=== PATIENT | male | born 1950 | race Caucasian/White ===

== ENCOUNTER 2017-01-22 11:09 | Day surgery (SDC) | payer MEDICARE, OTHER ==
--- NOTE | ~2017-01-22 | EGD ---
EGD REPORT [facility] [address] [id number] NAME: DARNELL MOORE : [birth year] STATUS : [facility]#: [id number] AGE: 66 ADM/REG DATE : 01/22/17 MR#: [id number] REPORT SERV DATE: 01/30/17 DICTATED BY: GEROGES AYALA DATE: 01/30/17 REPORT STATUS : Draft TRANSCRIBED BY: [facility] DATE: 01/30/17 Pulmonology Patient Name: Darnell Moore Procedure Date: 01/22/2017 1:13 PM Date of : 1950 Attending MD: GRISELDA AYALA MD Procedure Date No Time: 01/22/2017 Procedure: EBUS Indications: Mediastinal adenopathy Providers: GRISELDA AYALA MD Referring MD: CHRIS GASTELUM Medicines: Lidocaine 2% 20 mL Complications: No immediate complications Procedure: Pre-Anesthesia Assessment: - ASA Grade Assessment: IV - A patient with severe systemic disease that is a constant threat to life. - A History and Physical has been performed. Patient meds and allergies have been reviewed. The risks and benefits of the procedure and the sedation options and risks were discussed with the patient. All questions were answered and informed consent was obtained. Patient identification and proposed procedure were verified prior to the procedure by the physician and the nurse in the procedure room. Mental Status Examination: alert and oriented. Respiratory Examination: clear to auscultation. CV Examination: normal and RRR, no murmurs, no S3 or S4. ASA Grade Assessment: IV - A patient with severe systemic disease that is a constant threat to life. After reviewing the risks and benefits, the patient was deemed in satisfactory condition to undergo the procedure. The anesthesia plan was to use general anesthesia. Immediately prior to administration of medications, the patient was re-assessed for adequacy to receive sedatives. The heart rate, respiratory rate, oxygen saturations, blood pressure, adequacy of pulmonary ventilation, and response to care were monitored throughout the procedure. The physical status of the patient was re-assessed after the procedure. After obtaining informed consent, the Bronchoscope was introduced through the mouth, via the endotracheal tube (the patient was intubated for the procedure) and advanced to the tracheobronchial tree. the BF [id number] was introduced through the mouth, via the endotracheal tube (the patient was intubated for the procedure) and advanced to the tracheobronchial tree. EGD REPORT [address] [address] NAME: DARNELL MOORE : [birth year] STATUS : [facility]#: [id number] AGE: 66 ADM/REG DATE : 01/22/17 MR#: [id number] REPORT SERV DATE: 01/30/17 DICTATED BY: GEORGES AYALA DATE: 01/30/17 REPORT STATUS : Draft TRANSCRIBED BY: [employer] DATE: 01/30/17 The procedure was accomplished without difficulty. The patient tolerated the procedure well. Findings: The endotracheal tube is in good position. The visualized portion of the trachea is of normal caliber. The opal is sharp. The tracheobronchial tree was examined to at least the first subsegmental level. Bronchial mucosa and anatomy are normal; there are no endobronchial lesions, and no secretions. EBUS TBNA of lymph node level 7 x 4 passes for cytology EBUS TBNA of lymph node level 4R x 6 passes for cytology EBUS TBNA of lymph node level 11R x 11 passes for cytology Bronchoalveolar lavage was performed in the right upper lobe of the lung and sent for routine cytology. 60 mL of fluid were instilled. 20 mL were returned. The return was blood-tinged and cellular. Impression: Rapid On-Site Evaluation (NICOLAS): Preliminary cytology is POSITIVE for malignancy (final results are pending). Recommendation: - Await test results. - Chest X-ray post-procedure. - Follow up with referring physician, Dr. Sinclair Attending Participation: I personally performed the entire procedure. GRISELDA AYALA MD 01/22/2017 2:29 PM This report has been signed electronically. Number of Addenda: 0 Note Initiated On: 01/22/2017 1:13 PM [address] [id number]
--- NOTE | ~2017-01-22 | CN ---
Consultation Report [place] [address] [facility] [place] [address] NAME: DARNELL MOORE : [birth year] STATUS : [facility] PAT#: [id number] AGE: 66 ADM/REG DATE : 01/22/17 MR#: [id number] REPORT SERV DATE: 01/22/17 DICTATED BY: JOSE AYALA DATE: 01/22/17 REPORT STATUS : Draft TRANSCRIBED BY: [employer] DATE: 01/22/17 CONSULTATION DATE OF CONSULTATION: Dear Dr. Milligan: Thank you for requesting my opinion regarding evaluation and management of Mr. Darnell Moore's mediastinal lymphadenopathy. Mr. Moore is an extremely pleasant gentleman who is 66 years old with a significant past medical history of stage IV adenocarcinoma, status post whole brain radiation, who has developed increasing primary lung mass and mediastinal lymphadenopathy, which prompted radiation therapy to the current site and primary site. He underwent a second round of radiation therapy on 12/09/2016. The patient underwent repeat surveillance imaging, which then demonstrated a progressive pretracheal, right upper paratracheal and anterior mediastinal lymphadenopathy since October concerning for metastatic disease. Progressive metastatic disease. The patient has been set up for a study which requires repeat biopsy. The patient states that he has chronic shortness of breath well localized to the chest, nonradiating, with no significant alleviating or exacerbating factors. He firmly denies any hemoptysis, new weight gain, weight loss, or recent aspiration event. REVIEW OF SYSTEMS: A detailed 14-point review of systems was completed. Pertinent positives and negatives are listed above. PAST MEDICAL HISTORY: 1. Stage IV lung cancer. 2. Arthritis. 3. Tobacco abuse. 4. Hypothyroidism. 5. Brain metastases. ALLERGIES: PENICILLIN. SOCIAL HISTORY: The patient is . He smoked from age 15 to 60 for two packs per day. FAMILY HISTORY: Noncontributory. PHYSICAL EXAMINATION: VITAL SIGNS: Reviewed and located in the paper chart. GENERAL: No acute distress. Able to communicate in full paragraphs at a time. Consultation Report [place] [address] [facility] [place]. [address] NAME: DARNELL MOORE : [birth year] STATUS : [facility] PAT#: [id number] AGE: 66 ADM/REG DATE : 01/22/17 MR#: [id number] REPORT SERV DATE: 01/22/17 DICTATED BY: JOSE AYALA DATE: 01/22/17 REPORT STATUS : Draft TRANSCRIBED BY: [employer] DATE: 01/22/17 HEENT: Normocephalic, atraumatic. Pupils are equal, round, and reactive to light and accommodation. Posterior oropharynx is clear. NECK: No JVD. No LAD. Trachea midline. CARDIOVASCULAR: Regular rate and rhythm. S1 and S2 present. LUNGS: Scattered wheezes, but overall clear. ABDOMEN: Nontender, nondistended, soft. Positive bowel sounds. EXTREMITIES: No clubbing, cyanosis, or edema. SKIN: Radiation port noted with minimal hyperpigmentation posteriorly. NEUROLOGIC: 5/5 strength in upper and lower extremities. Cranial nerves 2 through 12 intact. Gait not tested. DTRs not performed. IMAGING: CT scan of the chest on 01/06/2017 was personally reviewed by me. Positive response and therapy in the right upper lobe lung mass since October, now measuring 5.8 x 4.3 cm. Progressive pretracheal, right upper paratracheal, and anterior mediastinal lymphadenopathy since October. This CT scan was personally reviewed by me and I agree with the above interpretation. ASSESSMENT AND PLAN: Mr. Darnell Moore is an extremely pleasant, 66-year-old, gentleman with a significant past medical history of adenocarcinoma, status post radiation therapy, who presents with suspicion for progressive disease with increasing mediastinal lymphadenopathy. At this point, Mr. Moore requires repeat biopsy to qualify for study drug, and Dr. Sinclair is requesting more tissue. We discussed in detail potential options including thoracoscopic approach, CT-guided needle biopsy, and EBUS bronchoscopy. After carefully discussing the risks, benefits, and alternatives to each of these procedures, we agreed to proceed forward with EBUS bronchoscopy. RECOMMENDATIONS: A summary of my recommendations is as follows: 1. Proceed with EBUS bronchoscopy. 2. Follow up with Dr. Sinclair. Thank you for allowing me to participate in Mr. Moore's care. MACIEL/SUZY Jose Ayala M.D. / [id number] CC: Mary Valerio DO
--- NOTE | ~2017-01-22 | EGD ---
EGD REPORT [facility] [address] [id number] NAME: DARNELL MOORE : [birth year] STATUS : [facility]#: [id number] AGE: 66 ADM/REG DATE : 01/22/17 MR#: [id number] REPORT SERV DATE: 01/30/17 DICTATED BY: GEORGES AYALA DATE: 01/30/17 REPORT STATUS : Draft [facility]ANSCRIBED BY: [facility] DATE: 01/30/17 Pulmonology Patient Name: Darnell Moore Procedure Date: 01/22/2017 1:13 PM Date of : 1950 Attending MD: GRISELDA AYALA MD Procedure Date No Time: 01/22/2017 Procedure: EBUS Indications: Mediastinal adenopathy Providers: GRISELDA AYALA MD Referring MD: CHRIS GASTELUM Medicines: Lidocaine 2% 20 mL Complications: No immediate complications Procedure: Pre-Anesthesia Assessment: - ASA Grade Assessment: IV - A patient with severe systemic disease that is a constant threat to life. - A History and Physical has been performed. Patient meds and allergies have been reviewed. The risks and benefits of the procedure and the sedation options and risks were discussed with the patient. All questions were answered and informed consent was obtained. Patient identification and proposed procedure were verified prior to the procedure by the physician and the nurse in the procedure room. Mental Status Examination: alert and oriented. Respiratory Examination: clear to auscultation. CV Examination: normal and RRR, no murmurs, no S3 or S4. ASA Grade Assessment: IV - A patient with severe systemic disease that is a constant threat to life. After reviewing the risks and benefits, the patient was deemed in satisfactory condition to undergo the procedure. The anesthesia plan was to use general anesthesia. Immediately prior to administration of medications, the patient was re-assessed for adequacy to receive sedatives. The heart rate, respiratory rate, oxygen saturations, blood pressure, adequacy of pulmonary ventilation, and response to care were monitored throughout the procedure. The physical status of the patient was re-assessed after the procedure. After obtaining informed consent, the Bronchoscope was introduced through the mouth, via the endotracheal tube (the patient was intubated for the procedure) and advanced to the tracheobronchial tree. the BF [id number] was introduced through the mouth, via the endotracheal tube (the patient was intubated for the procedure) and advanced to the tracheobronchial tree. EGD REPORT [address] [address] NAME: DARNELL MOORE : [birth year] STATUS : [facility]#: [id number] AGE: 66 ADM/REG DATE : 01/22/17 MR#: [id number] REPORT SERV DATE: 01/30/17 DICTATED BY: GEORGES AYALA DATE: 01/30/17 REPORT STATUS : Draft TRANSCRIBED BY: [employer] DATE: 01/30/17 The procedure was accomplished without difficulty. The patient tolerated the procedure well. Findings: The endotracheal tube is in good position. The visualized portion of the trachea is of normal caliber. The opal is sharp. The tracheobronchial tree was examined to at least the first subsegmental level. Bronchial mucosa and anatomy are normal; there are no endobronchial lesions, and no secretions. EBUS TBNA of lymph node level 7 x 4 passes for cytology EBUS TBNA of lymph node level 4R x 6 passes for cytology EBUS TBNA of lymph node level 11R x 11 passes for cytology Bronchoalveolar lavage was performed in the right upper lobe of the lung and sent for routine cytology. 60 mL of fluid were instilled. 20 mL were returned. The return was blood-tinged and cellular. Impression: Rapid On-Site Evaluation (NICOLAS): Preliminary cytology is POSITIVE for malignancy (final results are pending). Recommendation: - Await test results. - Chest X-ray post-procedure. - Follow up with referring physician, Dr. Sinclair Attending Participation: I personally performed the entire procedure. GRISELDA AYALA MD 01/22/2017 2:29 PM This report has been signed electronically. Number of Addenda: 0 Note Initiated On: 01/22/2017 1:13 PM [address] [address]
[~2017-01-22 11:09] MED LIST: ACET500CAP PO; ALIMTA100 MG; ALIMTA100 MG IV; B12250T PO; CARBOPLATIN150 MG IV; CYANO1000T PO; DEX4 PO; DEXAMETHASON1 MG PO; ELIQUIS 2.5 MG2.5 MG PO; FOLIC PO; KEPPRA500 PO; LEVOTHYROXIN125 MCG PO; MIRAPEX0.75 MG PO; MULTIPLE VIT PO; NORCO1 TAB PO; OTC IRON PO; PRILO PO; PROAIR HFA INH; SEV VITAMINS PO; SYN125 PO; VITAMIN B-121000 MC1 SL; ZINC PO
[2017-01-22 11:33] LABS: BASOPHILS 0.3 %; BASOPHILS ABSOLUTE 0.03 10/3/uL (0.0-0.16); EOSINOPHILS 5.3 %; EOSINOPHILS ABSOLUTE 0.51 10/3/uL (0.0-0.53); HEMATOCRIT 32.4 % (40.0-51.0); HEMOGLOBIN 10.9 g/dL (13.6-17.8); IMMATURE GRANULOCYTES 0.2 %; IMMATURE GRANULOCYTES ABSOLUTE 0.02 10/3/uL (0.0-0.11); LYMPHOCYTES 13.9 %; LYMPHOCYTES ABSOLUTE 1.34 10/3/uL (0.67-4.30); MANUAL DIFF NO %; MEAN CORPUS HGB CONC 33.6 g/dL (32.0-36.0); MEAN CORPUSCULAR HEMOGLOB 34.2 pg (26.0-34.0); MEAN CORPUSCULAR VOLUME 101.6 fL (80-100); MEAN PLATELET VOLUME 8.4 fL (9.2-13.0); MONOCYTES ABSOLUTE 0.87 10/3/uL (0.21-1.20); NEUTROPHILS 71.3 %; NEUTROPHILS ABSOLUTE 6.89 10/3/uL (2.02-8.40); PLATELET COUNT 201 10/3/uL (150-400); RBC DISTRIBUTION WIDTH 13.1 % (12.0-16.0); RED CELL COUNT 3.19 10/6/uL (4.7-6.1); WHITE BLOOD CELLS 9.7 10/3/uL (4.5-10.5)
[2017-01-22 11:44] LABS: INTERNATIONAL NORMAL RATI 1.2 UNITS (-); PARTIAL THROMBO TIME 26.8 SEC (22.5-37.2); PROTIME (NOT ORD) 14.9 SEC (12.0-14.5)
[2017-01-22 11:48] LABS: CALCIUM, SERUM 8.8 MG/DL (8.5-10.4); CHLORIDE, SERUM 100 MMOL/L (96-112); CO2 (CARBON DIOXIDE) 30 MMOL/L (24-34); CREATININE 0.76 MG/DL (0.70-1.30); GFR AFRICAN AMERICAN 109 ML/MIN (>=60); GFR NON AFRICAN AMERICAN 94 ML/MIN (>=60); POTASSIUM, SERUM 4.2 MMOL/L (3.5-5.3); SODIUM, SERUM 139 MMOL/L (135-148)
[2017-01-22 11:49] LABS: BUN (BLOOD UREA NITROGEN) 15 MG/DL (6-23); GLUCOSE, SERUM 126 MG/DL (60-99)
== END 2017-01-22 17:41 | disposition home or self-care (01) ==
LOC: DMU 11:09
PROVIDERS: Anesthesiology; Internal Medicine
PROC: 07974ZX Drainage of Thorax Lymphatic, Percutaneous Endoscopic Approach, Diagnostic (ICD-10-PCS; principal; 2017-01-22 12:30)
PROC: 0B948ZX Drainage of Right Upper Lobe Bronchus, Via Natural or Artificial Opening Endoscopic, Diagnostic (ICD-10-PCS; 2017-01-22 12:30)
PROC: 0B9C8ZX Drainage of Right Upper Lung Lobe, Via Natural or Artificial Opening Endoscopic, Diagnostic (ICD-10-PCS; 2017-01-22 12:30)
DX: C34.11 Malignant neoplasm of upper lobe, right bronchus or lung (principal); M19.90 Unspecified osteoarthritis, unspecified site; E03.9 Hypothyroidism, unspecified; K21.9 Gastro-esophageal reflux disease without esophagitis; C79.31 Secondary malignant neoplasm of brain; Z87.01 Personal history of pneumonia (recurrent); G93.89 Other specified disorders of brain; Z86.718 Personal history of other venous thrombosis and embolism; Z88.0 Allergy status to penicillin; Z79.899 Other long term (current) drug therapy; Z87.891 Personal history of nicotine dependence; G40.909 Epilepsy, unspecified, not intractable, without status epilepticus; H91.90 Unspecified hearing loss, unspecified ear; Z90.89 Acquired absence of other organs; Z98.890 Other specified postprocedural states; Z92.3 Personal history of irradiation; Z92.21 Personal history of antineoplastic chemotherapy; Z85.841 Personal history of malignant neoplasm of brain
CPT/HCPCS: 70553; 71010; 80048; 85025; 85610; 85730; 88112; 88172; 88173; 88305; 93005; A9577; C1725; J2250; J2370; J2405; J3010